=== PATIENT | female | born 1970 | race Caucasian/White ===

== ENCOUNTER 2017-01-29 18:56 | Emergency (ER) | payer MEDICAID ==
[2017-01-29] MEDS ORDERED: KETOROLAC TROMETHAMINE 60 MG/2 ML VIAL IM ONE ×2 (19:31→19:35)
--- NOTE | 2017-01-29 19:43 | ERNOTE ---
Trauma/Assault HPI - Narrative Date of Service: 01/29/17 - General Stated Complaint: FALL. SWELLING ON LT ARM Time Seen by Provider: 01/29/17 19:24 Source: patient Exam Limitations: no limitations - Immun/Allergies/Home Medications Immunizations: IMMUNIZATION HX Immunizations Up to Date No History of Influenza Vaccine No Hx Pneumococcal Vaccination No Allergies/Adverse Reactions: Allergies Penicillins Allergy (Severe, Verified 01/29/17 19:12) Anaphylaxis Home Medications: HOME MEDICATIONS Escitalopram Oxalate [Lexapro] 20 mg PO DAILY 10/10/15 [Last Taken 12/05/15] levETIRAcetam [Keppra] 1,000 mg PO BID 10/10/15 [Last Taken 12/05/15] Naproxen [Naprosyn] 500 mg PO BID PRN #60 tab 01/29/17 [Last Taken Unknown] - History of Present Illness Narrative: Pt. comes in with c/o L arm pain from her mid upper arm to her wrist after she fell on this arm just prior to arrival. Pt. states that she tripped over her feet when trying to catch her cat and fell on the gravel in her garage. Pt. denies any numbness, tingling, back or neck pain or hitting her head. Pt. denies any CP, SOB, recent illness or prehospital treatment. Pt. states that movement exacerbates the pain and nothing alleviates it. Review of Systems - Review of Systems Constitutional: Present: no symptoms reported. Absent: recent illness, fever, chills, weakness, fatigue, malaise EYE: Present: no symptoms reported ENT: Present: no symptoms reported Respiratory: Present: no symptoms reported. Absent: shortness of breath, cough , wheezing Cardiology: Present: no symptoms reported. Absent: chest pain, palpitations, edema Gastrointestinal/Abdominal: Present: no symptoms reported. Absent: nausea, vomiting, diarrhea, abdominal pain Genitourinary: Present: no symptoms reported Musculoskeletal: Present: joint pain - L upper arm, elbow and wrist Skin: Present: no symptoms reported Neurological: Present: no symptoms reported. Absent: headache, dizziness/light- headedness, numbness, tingling All Other Systems: All systems neg except as marked - Patient's Past Medical History Patient History - Medical: Anxiety, Depression, Seizures Patient History - Cardiac/Respiratory: No pertinent hx Patient History - Cancer: No Hx of Cancer Patient History - Surgical Procedures: Tubal Ligation, T & A Patient History - Other: None LMP (females 10-50): this week - Family History mom Family History - Medical: Renal Disease, Renal Failure, Seizures Family History - Cardiac/Respiratory: No pertinent hx dad Family History - Cardiac/Respiratory: Asthma - Social History Living Situations: home Abuse History: No History of abuse Psych History: Hx of Anxiety, Hx of Depression, Current tx/ever been on anti- depressants or anti-anxiety meds Smoking Status: Current every day smoker Alcohol Use: occasionally Drug Use: none - Immunizations Immunizations Up to Date: No Hx Pneumococcal Vaccination: No History of Influenza Vaccine: No Physical Exam - Physical Exam General Appearance: Present: wd/wn, alert, no apparent distress Eye Exam: Normal inspection: bilateral, PERRL: bilateral, EOMI: bilateral Ears, Nose, Throat: Present: normal ENT inspection, normal pharynx Neck: Present: normal inspection, nontender. Absent: lymphadenopathy (R), lymphadenopathy (L) Respiratory: Present: no respiratory distress, normal breath sounds, no accessory muscle use, chest nontender, lungs clear Cardiovascular/Chest: Present: regular rate, rhythm, no murmur, normal peripheral pulses Gastrointestinal/Abdominal: Present: normal bowel sounds, nontender Back Exam: Present: normal inspection, normal range of motion, no CVA tenderness , no vertebral tenderness Extremity Exam: Present: decreased range of motion, bony tenderness - L hyumerus and forearm and elbow, joint swelling - L elbow Neurological Exam: Present: alert, oriented, normal mood/affect, no motor/ sensory deficits Skin Exam: Present: normal color, warm/dry, other - abrasion superficial R orearm and dorsal wrist no active bleeding. Absent: pallor, skin rash ED Progress - Vital Signs Patient's Vital Signs:: I have reviewed the patient's vital signs. Vital Signs: Vital Signs 01/29/17 19:06 Temperature 37.2 C Pulse Rate 93 Respiratory 18 Rate Blood Pressure 142/99 O2 Sat by Pulse 98 Oximetry - X-Ray X-Ray #1 X-Ray: humerus Interpretation: Reviewed by me X-ray Comments: no acute ossious abnormality X-Ray #2 X-Ray: forearm Interpretation: Reviewed by me X-ray Comments: no acute ossious abnormality - Progress/Reassessment Chief Complaint: Fall Departure Clinical Impression: Abrasion Elbow contusion Qualifiers: Encounter type: initial encounter Laterality: left Qualified Code(s): S50.02XA - Contusion of left elbow, initial encounter - Departure Disposition: Home self-care Condition: Good Instructions: Elbow Contusion, [id number], Abrasion, [id number] Additional Instructions: Please leave mazin wrap on for 1 week and wear sling while up. In one week you may stop using mazin wrap and sling and if you do not have pain may return to activity as tolerated . If you still have pain you need to follow up with your primary provider to determine if you need further testing. Prescriptions: Naproxen [Naprosyn] 500 mg PO BID PRN #60 tab PRN Reason: Pain
[2017-01-29 20:16] VITALS: BP 135/84
== END 2017-01-29 20:00 | disposition home or self-care (01) ==
LOC: ER 18:56
DX: S50.811A Abrasion of right forearm, initial encounter (principal); S60.811A Abrasion of right wrist, initial encounter; W01.0XXA Fall on same level from slipping, tripping and stumbling without subsequent striking against object, initial encounter; Y93.89 Activity, other specified; Y92.008 Other place in unspecified non-institutional (private) residence as the place of occurrence of the external cause; S50.02XA Contusion of left elbow, initial encounter; Z72.0 Tobacco use; G40.409 Other generalized epilepsy and epileptic syndromes, not intractable, without status epilepticus; F41.8 Other specified anxiety disorders

== ENCOUNTER 2017-02-04 17:54 | Emergency (ER) | payer MEDICAID ==
--- NOTE | 2017-02-04 18:30 | ERNOTE ---
Upper Extremity HPI - Narrative Date of Service: 02/04/17 - General Extremities Pain Location: elbow: left, wrist: left Time Seen by Provider: 02/04/17 18:15 Source: patient Exam Limitations: no limitations - Immun/Allergies/Home Medications Immunizations: IMMUNIZATION HX Immunizations Up to Date Yes History of Influenza Vaccine No Hx Pneumococcal Vaccination No Allergies/Adverse Reactions: Allergies Allergy/AdvReac Type Severity Reaction Status Date / Time Penicillins Allergy Severe Anaphylaxis Verified 02/04/17 18:09 Home Medications: HOME MEDICATIONS Escitalopram Oxalate [Lexapro] 20 mg PO DAILY 10/10/15 [Last Taken 12/05/15] levETIRAcetam [Keppra] 1,000 mg PO BID 10/10/15 [Last Taken 12/05/15] Naproxen [Naprosyn] 500 mg PO BID PRN #60 tab 01/29/17 [Last Taken Unknown] Sulfamethoxazole/Trimethoprim [Bactrim Ds] 1 tab PO BID #28 tab 02/04/17 [Last Taken Unknown] oxyCODONE HCL/ACETAMINOPHEN [Percocet 5 MG/325 MG] 1 tab PO Q4H PRN #10 tab 08/13 [Last Taken Unknown] - History of Present Illness Narrative: Pt. comes in with c/o pain in her L dorsal wrist from area that she hit when she fell a week ago. Pt. states that a day after she was seen in this ER her skin on her L wrist sloughed off in an area to reveal an abraded area that has developed redness and yellow drainage over the past 24 hours. Pt. denies any fevers, SOB, CP, but also does state that the bruised area near her elbow has become more painful with touching or bumping on something recently. Pt. had been keeping wrist and elbow aced wrapped as ordered. Pt. denies any SOB, CP, NVD, numbness or tingling, alleviating factors or aggravating factors. Review of Systems - Review of Systems Constitutional: Present: no symptoms reported. Absent: recent illness, fever, chills, weakness, fatigue, malaise EYE: Present: no symptoms reported ENT: Present: no symptoms reported Respiratory: Present: no symptoms reported. Absent: shortness of breath, cough , wheezing Cardiology: Present: no symptoms reported. Absent: chest pain, palpitations, edema Gastrointestinal/Abdominal: Present: no symptoms reported. Absent: nausea, vomiting, diarrhea, abdominal pain Genitourinary: Present: no symptoms reported Musculoskeletal: Present: joint pain - L wrist and elbow. Absent: back pain Skin: Present: other - redness and swelling to L wrist Neurological: Present: no symptoms reported. Absent: headache, dizziness/light- headedness, numbness, tingling All Other Systems: All systems neg except as marked - Patient's Past Medical History Patient History - Medical: Anxiety, Depression, Seizures Patient History - Cardiac/Respiratory: No pertinent hx Patient History - Cancer: No Hx of Cancer Patient History - Surgical Procedures: Tubal Ligation, T & A Patient History - Other: None - Family History mom Family History - Medical: Renal Disease, Renal Failure, Seizures Family History - Cardiac/Respiratory: No pertinent hx dad Family History - Cardiac/Respiratory: Asthma - Social History Living Situations: home Abuse History: No History of abuse Psych History: Hx of Anxiety, Hx of Depression, Current tx/ever been on anti- depressants or anti-anxiety meds Smoking Status: Current every day smoker Patient requests Smoking Cessation Consult: No Initiate information on Smoking Cessation: No Alcohol Use: occasionally Drug Use: none - Immunizations Immunizations Up to Date: Yes Hx Pneumococcal Vaccination: No History of Influenza Vaccine: No Physical Exam - Physical Exam General Appearance: Present: wd/wn, alert, no apparent distress Eye Exam: Normal inspection: bilateral, PERRL: bilateral, EOMI: bilateral Ears, Nose, Throat: Present: normal ENT inspection, normal pharynx Neck: Present: normal inspection, nontender. Absent: lymphadenopathy (R), lymphadenopathy (L) Respiratory: Present: no respiratory distress, normal breath sounds, no accessory muscle use, chest nontender, lungs clear Cardiovascular/Chest: Present: regular rate, rhythm, no murmur, normal peripheral pulses Gastrointestinal/Abdominal: Present: normal bowel sounds, nontender, nondistended, soft, no organomegaly Back Exam: Present: normal inspection Extremity Exam: Present: decreased range of motion, joint swelling - L wrist and elbow. Absent: bony tenderness Neurological Exam: Present: alert, oriented, normal mood/affect, no motor/ sensory deficits Skin Exam: Present: normal color, warm/dry, other - redness and swelling around a closed wound with 100percent yellow slough and scant yellow drainage. ED Progress - Results and Orders Patient's Lab Results:: I have reviewed the patient's lab results. - Vital Signs Patient's Vital Signs:: I have reviewed the patient's vital signs. Vital Signs: Vital Signs 02/04/17 18:05 Temperature 36.8 C Pulse Rate 88 Respiratory 20 Rate Blood Pressure 136/78 O2 Sat by Pulse 98 Oximetry - Progress/Reassessment Chief Complaint: Upper Extremity Injury/Problem Progress:: Unchanged Departure Clinical Impression: Abrasion Elbow contusion Qualifiers: Encounter type: subsequent encounter Laterality: left Qualified Code(s): S50.02XD - Contusion of left elbow, subsequent encounter Cellulitis Qualifiers: Site of cellulitis: extremity Site of cellulitis of extremity: upper extremity Laterality: left Qualified Code(s): L03.114 - Cellulitis of left upper limb - Departure Disposition: Home self-care Condition: Good Instructions: Contusion, [id number], Cellulitis, Adult, [id number] Additional Instructions: Keep mazin wrap on elbow but may keep it off of wrist. Keep clean and dry and follow up with orthopedics as soon as they are able to get you in to evaluate elbow. Also please follow up with primary provider for wrist wound. Apply neosporin twice a day to wound. Prescriptions: Sulfamethoxazole/Trimethoprim [Bactrim Ds] 1 tab PO BID #28 tab oxyCODONE HCL/ACETAMINOPHEN [Percocet 5 MG/325 MG] 1 tab PO Q4H PRN #10 tab PRN Reason: Pain
[2017-02-04 18:34] LABS: Hematocrit 40.2 % (37.0-47.0); Hemoglobin 13.7 gm/dL (12.5-16.0); Mean Cell Volume 87.4 fl (78-100); Mean Corpuscular Hemoglobin 29.8 pg (27-31); Mean Corpuscular Hgb Conc 34.1 g/dl (32-36); Mean Platelet Volume 9.6 fl (6.0-9.5); Neutrophil # 4.9 K/mm3 (1.3-6.0); Neutrophil % 54.4 % (42-75.0); Platelet Count 248 K/mm3 (150-450); Red Cell Distribution Width 12.9 % (11.5-14.0); White Blood Count 8.9 K/mm3 (4.0-10.5)
[2017-02-04 19:00] LABS: Albumin * 3.9 gm/dl (3.4-5.0); Anion Gap 15.9 mmol/L (6.8-13.8); BUN/Creatinine Ratio 18.9 (9.0-21.6); Bilirubin, Total 0.6 mg/dL (0.0-1.1); CRP 0.2 mg/dL (0.0-0.9); Ca. Corrected For Albumin 8.9 mg/dL (8.4-10.2); Calcium * 9.1 mg/dL (7.9-10.9); Carbon Dioxide 25.9 mmol/L (24-32.6); Potassium 3.8 mmol/L (3.4-4.6); Total Protein 6.9 gm/dL (6.2-8.2); Uric Acid 3.2 mg/dL (2.6-7.2)
[2017-02-04] MEDS ORDERED: SULFAMETHOXAZOLE/TRIMETHOPRIM 1 TAB TABLET ONE (19:20)
[2017-02-04] MEDS: SULFAMETHOXAZOLE/TRIMETHOPRIM 1 TAB TABLET PO ONE (19:25)
[2017-02-04 19:37] VITALS: BP 139/87
== END 2017-02-04 19:31 | disposition home or self-care (01) ==
LOC: ER 17:54
DX: S50.02XD Contusion of left elbow, subsequent encounter (principal); L03.114 Cellulitis of left upper limb; Z72.0 Tobacco use; G40.409 Other generalized epilepsy and epileptic syndromes, not intractable, without status epilepticus; F41.8 Other specified anxiety disorders

== ENCOUNTER 2017-08-04 13:31 | Emergency (ER) | payer MEDICAID ==
[2017-08-04 13:52] LABS: Hematocrit 43.3 % (37.0-47.0); Hemoglobin 14.6 gm/dL (12.5-16.0); Mean Cell Volume 89.5 fl (78-100); Mean Corpuscular Hemoglobin 30.2 pg (27-31); Mean Corpuscular Hgb Conc 33.7 g/dl (32-36); Mean Platelet Volume 10.1 fl (6.0-9.5); Neutrophil % 50.1 % (42-75.0); Platelet Count 271 K/mm3 (150-450); Red Blood Count 4.84 M/mm3 (4.2-5.4); Red Cell Distribution Width 12.1 % (11.5-14.0)
[2017-08-04 14:05] LABS: ALT 30 U/L (19-67); AST 19 U/L (0-48); Albumin * 4.1 gm/dl (3.4-5.0); Alkaline Phosphatase * 124 U/L (50-170); Anion Gap 15.2 mmol/L (6.8-13.8); Bilirubin, Total 0.4 mg/dL (0.0-1.1); Blood Urea Nitrogen 8 mg/dL (3-23); Ca. Corrected For Albumin 8.7 mg/dL (8.4-10.2); Calcium * 9.1 mg/dL (7.9-10.9); Carbon Dioxide 24.6 mmol/L (24-32.6); Chloride 103 mmol/L (97-106); Glucose * 103 mg/dL (70-110); Potassium 3.8 mmol/L (3.4-4.6); Sodium 139 mmol/L (132-142); Total Protein 7.9 gm/dL (6.2-8.2); Troponin I Less than 0.017 ng/ml (0.00-0.10)
[2017-08-04] MEDS ORDERED: KETOROLAC TROMETHAMINE 60 MG/2 ML VIAL IM ONE ×2 (14:15→14:29)
--- NOTE | 2017-08-04 15:23 | ERNOTE ---
Chest Pain/Cardiac HPI Chief Complaint: Chest Pain Time Seen by Provider: 08/04/17 14:09 Source: patient Exam Limitations: no limitations Immunizations: IMMUNIZATION HX Immunizations Up to Date Yes History of Influenza Vaccine No Hx Pneumococcal Vaccination No Allergies/Adverse Reactions: Allergies Penicillins Allergy (Severe, Verified 08/04/17 13:44) Anaphylaxis Home Medications: HOME MEDICATIONS Escitalopram Oxalate [Lexapro] 20 mg PO DAILY 10/10/15 [Last Taken 12/05/15] levETIRAcetam [Keppra] 1,000 mg PO BID 10/10/15 [Last Taken 12/05/15] Naproxen [Naprosyn] 500 mg PO BID PRN #60 tab 01/29/17 [Last Taken Unknown] Sulfamethoxazole/Trimethoprim [Bactrim Ds] 1 tab PO BID #28 tab 02/04/17 [Last Taken Unknown] oxyCODONE HCL/ACETAMINOPHEN [Percocet 5 MG/325 MG] 1 tab PO Q4H PRN #10 tab 08/13 [Last Taken Unknown] Diazepam [Valium] 5 mg PO BID PRN #20 tablet 08/04/17 [Last Taken Unknown] Naproxen [Naprosyn] 500 mg PO BID #60 tablet 08/04/17 [Last Taken Unknown] Narrative: Patient presents with anterior chest wall pain that is worse with deep breath and palpation. Onset was approximately 1 to 2 HOURS prior to arrival and she rates the pain as moderate to severe in intensity Timing: constant Severity/Quality: moderate, severe Location: central Chest Pain Radiation: no radiation Activities at Onset: none Modifying Factors - Improves: Present: nothing Modifying Factors - Worsens: Present: breathing, coughing, movement, other - palpation Associated Symptoms: Present: denies symptoms Prior Chest Pain/Cardiac Workup: Reports: non-cardiac Review of Systems - Review of Systems Constitutional: Present: See HPI EYE: Present: no symptoms reported ENT: Present: no symptoms reported Respiratory: Present: no symptoms reported Cardiology: Present: chest pain - reproducible on palpation Gastrointestinal/Abdominal: Present: no symptoms reported Genitourinary: Present: no symptoms reported Musculoskeletal: Present: no symptoms reported Skin: Present: no symptoms reported Neurological: Present: no symptoms reported Endocrine: Present: no symptoms reported Hematologic/Lymphatic: Present: no symptoms reported Psych: Present: no symptoms reported - Patient's Past Medical History Patient History - Medical: Anxiety, Depression, Seizures Patient History - Cardiac/Respiratory: No pertinent hx Patient History - Cancer: No Hx of Cancer Patient History - Surgical Procedures: Tubal Ligation, T & A Patient History - Other: None - Family History mom Family History - Medical: Renal Disease, Renal Failure, Seizures Family History - Cardiac/Respiratory: No pertinent hx dad Family History - Cardiac/Respiratory: Asthma - Social History Living Situations: home Abuse History: No History of abuse Psych History: Hx of Anxiety, Hx of Depression, Current tx/ever been on anti- depressants or anti-anxiety meds - Immunizations Immunizations Up to Date: Yes Hx Pneumococcal Vaccination: No History of Influenza Vaccine: No Physical Exam - Physical Exam General Appearance: Present: wd/wn, alert, moderate distress, severe distress Head Exam: Present: normal inspection Eye Exam: Normal inspection: bilateral, PERRL: bilateral Ears, Nose, Throat: Present: normal ENT inspection, H, normal pharynx Neck: Present: normal inspection, nontender Respiratory: Present: no respiratory distress, normal breath sounds, no accessory muscle use, lungs clear, chest tenderness - to palpation, motion and deep breath Cardiovascular/Chest: Present: regular rate, rhythm, no murmur, normal peripheral pulses Gastrointestinal/Abdominal: Present: normal bowel sounds, nontender, nondistended, soft, no organomegaly Rectal Exam: Present: deferred Back Exam: Present: normal inspection, normal range of motion Extremity Exam: Present: normal inspection, non-tender, no edema, normal range of motion Neurological Exam: Present: alert, oriented, normal mood/affect Skin Exam: Present: normal color, warm/dry Lymphatic Exam: Present: no adenopathy ED Progress - Results and Orders Patient's Lab Results:: I have reviewed the patient's lab results. - Vital Signs Patient's Vital Signs:: I have reviewed the patient's vital signs. Vital Signs: Vital Signs 08/04/17 08/04/17 08/04/17 13:41 14:09 14:37 Temperature 36.7 C Pulse Rate 89 89 79 Respiratory 22 H 22 H Rate Blood Pressure 145/106 120/73 O2 Sat by Pulse 98 98 Oximetry - EKG EKG: NSR EKG read: Interp. by me - X-Ray X-Ray #1 Interpretation: Reviewed by me - Progress/Reassessment Chief Complaint: Chest Pain Progress:: Improved Plan - Plan Plan: Surgical history consider underlying anxiety disorder being part of the process with her, however she does have chest wall pain and has reproducible pain at the costochondral junction bilaterally. She'll be started on a nonsteroidal anti-inflammatory and Valium which WILL work on the spasm and secondarily on the persistent anxiety and she'll follow-up with her family physician Departure Clinical Impression: Chest wall pain, Anxiety - Departure Disposition: Home self-care Condition: Good Instructions: Chest Wall Pain, [id number] Prescriptions: Diazepam [Valium] 5 mg PO BID PRN #20 tablet PRN Reason: Moderate Pain Naproxen [Naprosyn] 500 mg PO BID #60 tablet Critical Care Time - Critical Care Critical Time Spent:: No Total time (mins) Spent:: 0
[2017-08-04 16:11] VITALS: BP 117/84
== END 2017-08-04 15:39 | disposition home or self-care (01) ==
LOC: ER 13:31
DX: R07.89 Other chest pain (principal); F41.9 Anxiety disorder, unspecified